=== PATIENT | female | born 1965 | race Caucasian/White ===

== ENCOUNTER 2016-10-15 19:13 | Emergency (ER) | payer OTHER ==
[~2016-10-15] VITALS: Ht 154.9 cm; Wt 86.2 kg
[~2016-10-15 19:13] MED LIST: ALBUTEROL0.09 MG/A1 INH; ASPIR 8181 MG PO; ATORVASTATIN CA10 MG PO; ATORVASTATIN CA40 MG PO; AZITHROMYCIN250 MG PO; BYSTOLIC20 M1 PO; CYMBALTA30 M1 PO; DICLOFENAC SODI50 MG PO; FLU VACCINE 0.0.5 ML IM; GABAPENTIN800 MG PO; GLIMEPIRIDE4 MG PO; GLUCOPHAGE1000 M1 PO; LANTUS SOLOS100 U/ML SC; LIPITOR40 M1 PO; LISINOPRIL30 M1 PO; MAGNESIUM OXID200 MG PO; NORCO 325 MG-7.1 TAB PO; NORVASC10 M1 PO; PANTOPRAZOLE SO40 MG PO; PNEUMOVAX 0.5M0.5 ML IM; PREDNISONE50 MG PO; TRADJENTA5 MG PO; TRAZODONE50 MG PO; VALACYCLOVIR1000 MG PO; ZOFRAN4 M1 SL; [UNRECOGNIZED DRUG - SUPPLY]
--- NOTE | 2016-10-15 20:11 | ED GENERAL ADULT ---
History of Present Illness General Chief Complaint: Lower Extremity Problems Stated Complaint: "SILVESTRE BELLE BEEN HAVING SWOLLEN FEET AND LEGS" Source: patient Exam Limitations: no limitations Vital Signs & Intake/Output Vital Signs & Intake/Output Vital Signs Date Time Temp Pulse Resp B/P Pulse O2 O2 Flow FiO2 Ox Delivery Rate 10/16 1919 97.3 58 20 131/77 97 Room Air Room Air Allergies Coded Allergies: Penicillins (GI UPSET, RASH 10/15/16) Sulfa (Sulfonamide Antibiotics) (GI UPSET 10/15/16) Reconcile Medications Amlodipine Besylate (Norvasc) 10 MG TABLET 1 TAB PO DAILY hypertension Aspirin (Ecotrin) 81 MG TABLET.DR 1 TAB PO DAILY HEART HEALTH (Reported) Atorvastatin Calcium (Lipitor) 40 MG TAB 1 TAB PO DAILY CHOLESTEROL (Reported ) [automated BP cuff] 1 Automated blood pressure cuff #1 diagnosis: Hypertension Diclofenac Sodium 50 MG ECT 1 TAB PO Q8 PRN PINCHED NERVES NECK/SHOULDER ( Reported) Duloxetine Hydrochloride (Cymbalta) 30 MG CAPSULE.DR 90 MG PO AT BEDTIME DEPRESSION/NEUROPATHY (Reported) Furosemide (Lasix) 20 MG TABLET 1 TAB PO DAILY DEPENDENT EDEMA Gabapentin 800 MG TABLET 1-3 TAB PO TID NEUROPATHY (Reported) Glimepiride 4 MG TABLET 1 TAB PO BID DIABETES Linagliptin (Tradjenta) 5 MG TABLET 1 TAB PO DAILY DIABETES Lisinopril 30 MG TAB 1 TAB PO DAILY BP (Reported) Magnesium Oxide 200 MG TAB 1 TAB PO DAILY HYPOMAGNESIA METFORMIN HCL (Metformin) 1,000 MG TAB 1 TAB PO BID DIABETES (Reported) Nebivolol Hydrochloride (Bystolic) 10 MG TAB 1 TAB PO DAILY BP (Reported) Ondansetron (Zofran Odt) 4 MG ODT 1 TAB SL TID PRN NAUSEA Valacyclovir HCl (Valacyclovir) 1,000 MG TABLET 1 TAB PO TID bells palsy Triage Note: PT TO ED WITH C/O BILATERAL LOWER LEG SWELLING X 1 WEEK "THE RIGHT SLIGHTLY BETTER NOW, I FEEL LIKE MY LEFT KNEE HAS WATER IN IT". Triage Nurses Notes Reviewed? yes Onset: Abrupt Duration: week(s): (1), constant Timing: recent history Injury Environment: home No Modifying Factors: none HPI: 51-year-old female comes into emergency room for evaluation of leg swelling bilaterally is been going on for the past week. Denies any chest pain shortness of breath. Denies any recent trauma or prior history of this. Nothing seems to make the symptoms better. Patient is been trying to elevate her legs with no relief. Denies any rashes. (JETT FINK) Past History Travel History Traveled to [place] past 21 day No Medical History Any Pertinent Medical History? see below for history Neurological: NONE EENT: allergies Cardiovascular: hypertension Respiratory: NONE Gastrointestinal: GERD Hepatic: NONE Renal: NONE Musculoskeletal: CHRONIC NECK PAIN Psychiatric: NONE Endocrine: diabetes Blood Disorders: NONE Cancer(s): NONE LEARNING AND DEVELOPMENT INTERN/Reproductive: NONE Surgical History Surgical History: non-contributory Psychosocial History What is your primary language Omani Tobacco Use: Current Daily Use Daily Tobacco Use Amount/Type: => 5 Cigarettes daily ETOH Use: occasional use Illicit Drug Use: denies illicit drug use Family History Hx Contributory? No (JETT FINK) Review of Systems Review of Systems Constitutional: Reports: no symptoms. EENTM: Reports: no symptoms. Respiratory: Reports: no symptoms. Cardiovascular: Reports: no symptoms. GI: Reports: no symptoms. Genitourinary: Reports: no symptoms. Musculoskeletal: Reports: see HPI. Skin: Reports: see HPI. Neurological/Psychological: Reports: no symptoms. Hematologic/Endocrine: Reports: no symptoms. Immunologic/Allergic: Reports: no symptoms. All Other Systems: Reviewed and Negative (JETT FINK) Physical Exam Physical Exam General Appearance: well developed/nourished, no apparent distress, alert, awake Head: atraumatic, normal appearance Eyes: Bilateral: normal appearance, EOMI. Ears, Nose, Throat: normal pharynx, hearing grossly normal Neck: normal inspection Respiratory: normal breath sounds, no respiratory distress Cardiovascular: regular rate/rhythm Back: normal inspection Extremities: normal inspection, normal range of motion Neurologic/Psych: awake, alert, oriented x 3, normal gait, normal mood/affect Skin: intact, normal color Core Measures ACS in differential dx? No CVA/TIA Diagnosis: No Severe Sepsis Present: No Septic Shock Present: No (JETT FINK) Progress Differential Diagnoses I considered the following diagnoses in my evaluation of the patient: DVT, renal failure, dependent edema, CHF, Plan of Care: Orders Procedure Date/time Status COMPREHENSIVE METABOLIC PANEL 10/15 2009 Complete CBC WITHOUT DIFFERENTIAL 10/15 2009 Complete B-TYPE NATRIURETIC PEP (BNP) 10/15 2009 Complete Laboratory Tests 10/15/162054: Anion Gap 7, Estimated GFR > 60, BUN/Creatinine Ratio 8.8, Glucose 99, Calcium 8.9, Total Bilirubin 0.4, AST 15, ALT 24, Alkaline Phosphatase 80, Pro-B- Natriuretic Pept 448 H, Total Protein 6.5, Albumin 3.6, Globulin 2.9, Albumin/ Globulin Ratio 1.2, CBC w Diff MAN DIFF ORDERED, RBC 4.19 L, MCV 88.4, MCH 29.3 , RDW 13.8, MPV 8.3, Gran % 48.7, Lymphocytes % 39.1, Monocytes % 9.5 H, Eosinophils % 2.2, Basophils % 0.5, Absolute Granulocytes 5.2, Segmented Neutrophils 43, Band Neutrophils 3, Absolute Lymphocytes 4.1 H, Lymphocytes 44, Monocytes 7, Absolute Monocytes 1.0 H, Eosinophils 2, Absolute Eosinophils 0.2, Basophils 1, Absolute Basophils 0.1, Platelet Estimate ADEQUATE, Hypochromic- Microcytic 1+, Anisocytosis 1+, PUBS MCHC 33.2 Diagnostic Imaging: Viewed by Me: Radiology Read, Ultrasound. Discussed w/RAD: Radiology Read, Ultrasound. Radiology Impression: SERVICE DATE: 10/15/16 EXAM TYPE: US - US-EXT BILAT VENOUS DOPPLER EXAMINATION: US TRIPLEX LOWER EXTREMITY, BILATERAL CLINICAL INFORMATION: Edema. Swelling. COMPARISON: None TECHNIQUE: Color-flow triplex imaging with spectral analysis and compression Doppler were performed on the bilateral lower extremities. FINDINGS: Respiratory variation, normal compression and augmented flow are noted throughout the bilateral lower extremities. The visualized common femoral vein, superficial femoral vein, profunda femoral vein, popliteal vein and midcalf peroneal and posterior tibial venous segments show no evidence of deep venous thrombosis. There is no Saenz's cyst. IMPRESSION: Normal triplex scan without evidence of deep venous thrombosis involving the bilateral lower extremities. DICTATED BY: ANIBAL VERGARA MD DATE/TIME DICTATED:10/15/162148, SERVICE DATE: 10/15/16 EXAM TYPE: RAD - XRY-CHEST XRAY, PA AND LATERAL EXAMINATION: XR CHEST CLINICAL INFORMATION: Bilateral leg swelling COMPARISON: 08/11/2014 TECHNIQUE: 2 views of the chest were obtained. FINDINGS: No focal consolidation, pulmonary edema, or pleural effusion. Stable cardiomediastinal silhouette. IMPRESSION: No acute cardiopulmonary findings. Initial ED EKG: none (JETT FINK) Departure Departure Disposition: HOME OR SELF CARE Condition: Stable Clinical Impression Primary Impression: Dependent edema Referrals: SAPNA OWENS MD (PCP/Family) Additional Instructions: Follow-up with primary care doctor. Take Lasix as prescribed. Elevate your legs. learning support services director [id number] compression stockings. Return if any other concerns worsening symptoms. Please go over all results of today's visit with your primary care doctor. Contact your primary care doctor to let them know you were here in the emergency room. There may be nonspecific findings which may not be related to your visit today here in the emergency room but may require further evaluation and chronic monitoring by your primary care doctor. If you had a laceration today the chance of foreign body always remains. You should follow-up with your primary care doctor for recheck in 3-5 days for a wound check. If you had an x-ray done there is a chance that a fracture could have been missed on initial read and you should follow-up with your primary care doctor for repeat x-rays if symptoms persist. If your blood pressure was elevated here in the emergency room please have rechecked by her primary care doctor within the next 48 hours by your primary care doctor. If you were prescribed a narcotic here in the emergency room or any type of controlled substances you're not allowed to drive while taking this medication or operate any type of heavy machinery. Narcotics can make you feel lightheaded dizziness nausea and can cause constipation. You may need to seed cone picker a stool softener. Thank you for choosing [facility] emergency room. Please return to the emergency room immediately if you have any other concerns worsening of symptoms. Departure Forms: Customer Survey General Discharge Information Prescriptions: Current Visit Scripts Furosemide (Lasix) 1 TAB PO DAILY #5 TAB Comments 10/15/2016 10:30:32 PM Patient clinically looks well. Patient is nontoxic-appearing. Patient is in no apparent distress. No evidence of renal failure. Follow-up with primary care doctor. Return if any concerns worsening symptoms. No evidence of congestive heart.. No cardiac or pulmonary symptoms. (JETT FINK) PA/MANAGER STRATEGIC PARTNERSHIPS Co-Sign Statement Statement: ED Attending supervision documentation- [] I saw and evaluated the patient. I have also reviewed all the pertinent lab results and diagnostic results. I agree with the findings and the plan of care as documented in the PA's/MANAGER STRATEGIC PARTNERSHIPS's documentation. [X] I have reviewed the ED Record and agree with the PA's/MANAGER STRATEGIC PARTNERSHIPS's documentation. [] Additions or exceptions (if any) to the PAs/MANAGER STRATEGIC PARTNERSHIPS's note and plan are summarized below: [] (JA VALVERDE,EDWIN) Critical Care Note Critical Care Note Critical Care Time: non-applicable (JETT FINK)
--- NOTE | 2016-10-15 20:46 | RADIOLOGY REPORT ---
EXAMINATION: XR CHEST CLINICAL INFORMATION: Bilateral leg swelling COMPARISON: 08/11/2014 TECHNIQUE: 2 views of the chest were obtained. FINDINGS: No focal consolidation, pulmonary edema, or pleural effusion. Stable cardiomediastinal silhouette. IMPRESSION: No acute cardiopulmonary findings.
[2016-10-15 21:09] LABS: ABSOLUTE BASOPHIL COUNT 0.1 /CUMM (0.0-0.2); ABSOLUTE EOSINOPHIL COUNT 0.2 /CUMM (0.0-0.7); ABSOLUTE GRANULOCYTE CT 5.2 /CUMM (1.4-6.5); ABSOLUTE LYMPH COUNT 4.1 /CUMM (1.2-3.4); BASOPHIL % 0.5 % (0.0-2.0); EOSINOPHIL % 2.2 % (0-5); GRANULOCYTE % 48.7 % (42.2-75.2); HEMATOCRIT 37.1 % (37-47); MEAN CORPUSCULAR HGB 29.3 PG (27.0-31.0); MEAN CORPUSCULAR HGB CONC 33.2 G/DL (33.0-37.0); MEAN CORPUSCULAR VOLUME 88.4 FL (81.0-99.0); MEAN PLATELET VOLUME 8.3 FL (7.4-10.4); PLATELET COUNT 284 /CUMM (130-400); RBC DISTRIBUTION WIDTH 13.8 % (11.5-14.5); RED BLOOD CELL CT 4.19 /CUMM (4.20-5.40); WHITE BLOOD CELL COUNT 10.6 /CUMM (4.8-10.8)
--- NOTE | 2016-10-15 21:53 | ULTRASOUND REPORT ---
EXAMINATION: US TRIPLEX LOWER EXTREMITY, BILATERAL CLINICAL INFORMATION: Edema. Swelling. COMPARISON: None TECHNIQUE: Color-flow triplex imaging with spectral analysis and compression Doppler were performed on the bilateral lower extremities. FINDINGS: Respiratory variation, normal compression and augmented flow are noted throughout the bilateral lower extremities. The visualized common femoral vein, superficial femoral vein, profunda femoral vein, popliteal vein and midcalf peroneal and posterior tibial venous segments show no evidence of deep venous thrombosis. There is no Saenz's cyst. IMPRESSION: Normal triplex scan without evidence of deep venous thrombosis involving the bilateral lower extremities.
[2016-10-15] MEDS ORDERED: LASIX20 M1 PO (22:06)
[2016-10-15 22:51] VITALS: BP 143/67
[2016-12-09] MEDS ORDERED: LANTUS SOL100 UNIT/1 SC (11:39)
[2016-12-09] MEDS ORDERED: PROAIR HFA8.5 GM INH (11:39)
[2016-12-09] MEDS ORDERED: ADVAIR 100-501 EACH INH (11:40)
[2016-12-09] MEDS ORDERED: PROTONIX40 M3 PO (11:40)
[2016-12-09] MEDS ORDERED: HYDROCODON-ACE1 EAC3 PO (11:41)
== END 2016-10-15 22:55 ==
LOC: ERH 19:13
PROVIDERS: Physician Assistant Medical
DX: R60.0 Localized edema (principal)
CPT/HCPCS: 93970

== ENCOUNTER → 2016-12-11 | Day surgery (SDC) | payer OTHER ==
[~2016-12-11] VITALS: Ht 154.9 cm; Wt 85.3 kg
[~2016-12-11] MED LIST changes: +ADVAIR 100-501 EACH INH; +ADVAIR 250-501 EACH INH; +HYDROCODON-ACE1 EAC3 PO; +LANTUS SOL100 UNIT/1 SC; +LASIX20 M1 PO; +LISINOPRIL40 M1 PO; +ONDANSETRON HCL8 MG PO; +PROAIR HFA8.5 GM INH; +PROTONIX40 M3 PO
--- NOTE | 2016-12-18 12:03 | Operative Report ---
Operative/Inv Procedure Report Surgery Date: 12/11/16 Name of Procedure: D&C hysteroscopy Pre-Operative Diagnosis: Postmenopausal bleeding Post-Operative Diagnosis: Same Estimated Blood Loss: scant Surgeon/Felt Hat Inspector And Packer: GAL STACK MD Anesthesia: moderate sedation Operative/Procedure Note Note: She was taken the operating room placed on position after adequate induction anesthesia patient placed in dorsolithotomy position the vagina was prepped draped so fashion bladder was catheterized examination under anesthesia performed a vasquez speculum was placed into the vagina CO2 tenaculum placed on the Intralipid cervix gentle downward traction cervix was dilated 29 Hegar to left insertion hysteroscope the scope was inserted and direct visualization using gas is scope was removed a sharp curettage and lining was performed cervical lining sharp curettage of the endometrial lining was performed hemostasis was apparent on since removed from the vagina 2 specimen sent to pathology patient was returned spine position on since removed from the vagina the counts correct the patient was awakened from anesthesia and transferred recovery room awake alert counts correct Findings: Slightly enlarged uterus no adnexal masses
== END ==
LOC: STS 03:49
DX: N95.0 Postmenopausal bleeding (principal); Z98.51 Tubal ligation status; E11.9 Type 2 diabetes mellitus without complications; Z79.84 Long term (current) use of oral hypoglycemic drugs; I10 Essential (primary) hypertension; K21.9 Gastro-esophageal reflux disease without esophagitis; F17.200 Nicotine dependence, unspecified, uncomplicated
CPT/HCPCS: 36415; 88305; 93005; 93010; J0131

== ENCOUNTER 2017-01-09 18:15 | Emergency (ER) | payer OTHER ==
[~2017-01-09] VITALS: Ht 154.9 cm; Wt 88.5 kg
[~2017-01-09 18:15] MED LIST changes: -ADVAIR 250-501 EACH INH; -LISINOPRIL40 M1 PO; -ONDANSETRON HCL8 MG PO
[2017-01-09 18:18] VITALS: BP 158/82
--- NOTE | 2017-01-09 19:34 | ED UPPER/LOWER EXTREMITY COMPL ---
History of Present Illness General Chief Complaint: Lower Extremity Problems Stated Complaint: PT WAS SIB DR FOR LEFT LEG SWOLLEN Source: patient, old records Exam Limitations: no limitations Vital Signs & Intake/Output Vital Signs & Intake/Output Vital Signs Date Time Temp Pulse Resp B/P B/P Pulse O2 O2 Flow FiO2 Mean Ox Delivery Rate 01/09 1818 98.8 68 18 158/82 98 Room Air ED Intake and Output 01/10 0000 01/09 1200 Intake Total Output Total Balance Patient 195 lb Weight Weight Reported by Patient Measurement Method Allergies Coded Allergies: Penicillins (GI UPSET, RASH 10/15/16) Sulfa (Sulfonamide Antibiotics) (GI UPSET 10/15/16) Reconcile Medications Albuterol Sulfate (Proair Hfa) 90 MCG HFA.AER.AD 2 PUF INH Q4-6 PRN PRN ASTHMA (Reported) Amlodipine Besylate (Norvasc) 10 MG TABLET 1 TAB PO DAILY hypertension Atorvastatin Calcium (Lipitor) 40 MG TABLET 1 TAB PO DAILY CHOLESTEROL ( Reported) Duloxetine Hydrochloride (Cymbalta) 30 MG CAPSULE.DR 90 MG PO QHS MENTAL HEALTH/NERVE PAIN (Reported) Fluticasone/Salmeterol (Advair 250-50 Diskus) 250 MCG-50 MCG/DOSE BLST.W.DEV 1 PUF INH BID PRN ASTHMA (Reported) Hydrocodone/Acetaminophen (Hydrocodon-Acetaminoph 7.5-325) 7.5 MG-325 MG TABLET 1-2 TAB PO Q4-6 PRN PRN PAIN (Reported) Insulin Glargine,Hum.rec.anlog (Lantus Solostar) 100 UNIT/ML (3 ML) INSULN.PEN 36 UNITS SC QPM DM II (Reported) Lisinopril 40 MG TABLET 1 TAB PO DAILY BP (Reported) Metformin HCl (Glucophage) 1,000 MG TABLET 1 TAB PO BID DM (Reported) Nebivolol HCl (Bystolic) 20 MG TABLET 1 TAB PO DAILY HTN (Reported) Ondansetron HCl 8 MG TABLET 1 TAB PO TID PRN N/V (Reported) Pantoprazole Sodium (Protonix) 40 MG TABLET.DR 1 TAB PO DAILY GERD (Reported) Triage Note: 51 YO FEMALE TO TRIAGE C/O BILATERAL LOWER EXTREMITY SWELLING (L>R) STATES SHE CALLED HER DR WHO TOLD HER TO COME TO ER TO GET IT CHECKED IT. DENIES CHEST PAIN, SOB. Triage Nurses Notes Reviewed? yes Onset: Gradual Duration: week(s): (1), intermittent, waxing and waning Timing: recent history Severity: mild, moderate Severity Numbers: 4 Pain/Injury Location: Bilateral: Leg. Method of Injury: unknown No Modifying Factors: none Associated Symptoms: none HPI: 51-year-old female presents to ER for evaluation with history of diabetes hypertension complaining of intermittent bilateral lower extremity swelling left greater than right for the past 1 week. She states the symptoms are resolved when she wakes up in the morning however as the day goes on the symptoms come back or she has pain no recent injury or trauma. She denies any rashes to her skin numbness or tingling no back pain. She denies any other extremity swelling chest pain shortness of breath fever chills. She is not taken anything for symptoms resolve care for them until this evening. No recent immobility or travel no hemoptysis or calf pain (BARI SAEED) Past History Travel History Traveled to [place] past 21 day No Medical History Any Pertinent Medical History? see below for history Neurological: NONE EENT: allergies Cardiovascular: hypertension Respiratory: NONE Gastrointestinal: GERD Hepatic: NONE Renal: NONE Musculoskeletal: CHRONIC NECK PAIN Psychiatric: NONE Endocrine: diabetes Blood Disorders: NONE Cancer(s): NONE CONSULTING GROUP ANALYST/Reproductive: D&C Surgical History Surgical History: non-contributory Psychosocial History What is your primary language Guinean Tobacco Use: Current Daily Use Daily Tobacco Use Amount/Type: => 5 Cigarettes daily Family History Hx Contributory? No (BARI SAEED) Review of Systems Review of Systems Constitutional: Reports: see HPI. All Other Systems: Reviewed and Negative Comments Review of systems: See HPI, All other systems negative. Constitutional, no chills no fever, no malaise HEENT: No visual changes no sore throat no congestion, no ear pain Cardiovascular: No chest pain , no palpitation , no orthopnea Skin: no rashes, no change in skin Respiratory: No dyspnea no cough no sputum no hemoptysis GI: No nausea no vomiting, no diarrhea, no bloating/constipation Muscle skeletal: No joint pain, no joint swelling, no back pain, no neck pain, Neurologic: No numbness no headache Psych: No stress Heme/endocrine: No bruising Immunology: No lymphadenopathy (BARI SAEED) Physical Exam Physical Exam General Appearance: well developed/nourished, no apparent distress, alert, awake , comfortable Comments: Well-developed well-nourished patient in no apparent distress. HEENT: Atraumatic, extraocular motion intact Neck: Supple, FROM Back: FROM Cardiovascular: Regular rate and rhythms no murmurs rubs or gallops, Respiratory: Chest nontender.There were no bony deformities, no asymmetry. No respiratory distress. Patient speaking in full complete sentences. Breath sounds clear to auscultation bilaterally: NO W/R/R Upper Extremities: full range of motion Hip/Pelvis: Atraumatic/Stable. FROM. No pain with pelvic compression Knee: Atraumatic/stable. FROM. No joint swelling, no effusion. No laxity. Negative be/anterior drawer test. No pain with ROM Leg: Atraumatic. Nontender. 1+ B/L edema, 5 out of 5 strength in the lower extremity, normal dorsiflexion of great toe bilaterally, gross sensation is intact, patellar tendon reflex 2+ bilaterally. Ankle/Foot: Atraumatic/stable. Skin intact. FROM. No swelling, no effusion. No laxity on exam Pulses: Normal/equal DP/PT pulses bilaterally. Brisk cap refill Neuro: awake, alert, and oriented to person, place and time. There were no obvious focal neurologic abnormalities. Skin: Warm & dry;No appreciable rash on exposed skin Psych: Mood affect normal, normal memory normal judgment. (LIZ RODARTE,BARI) Progress Differential Diagnosis: arterial insufficiency, cellulitis, CHF, contusion, DVT, fracture, gout, sprain, tendon injury Plan of Care: Orders Procedure Date/time Status US-EXT BILAT VENOUS DOPPLER 01/09 1943 Active Ultrasound ordered patient denies any pain I discussed with the patient at length all of their results. I had an extensive conversation regarding need for close follow up with their primary care physician this week as well as return precautions. I answered all of their questions, they feel comfortable with the plan and follow-up care. (LIZ RODARTE,BARI) Diagnostic Imaging: Viewed by Me: Ultrasound. Discussed w/RAD: Ultrasound. Radiology Impression: PATIENT: MARISSA SYLVESTER PRESENT AGE: 51 PATIENT ACCOUNT NO: [id number] : 64 LOCATION: [facility] ORDERING PHYSICIAN: BARI RODARTE SERVICE DATE: 01/09/17 EXAM TYPE: US - US-EXT BILAT VENOUS DOPPLER EXAMINATION: US TRIPLEX OF LOWER EXTREMITIES, BILATERAL CLINICAL INFORMATION: Bilateral lower extremity swelling, left greater than right. COMPARISON: Ultrasound of the bilateral lower extremity veins 10/15/2016. TECHNIQUE: Color-flow triplex imaging with spectral analysis and compression Doppler were performed on the lower extremities. FINDINGS: Respiratory variation , normal compression and augmented flow are noted throughout the bilateral lower extremities. The visualized common femoral, femoral, profunda femoral, popliteal and midcalf peroneal and posterior tibial venous segments show no evidence of deep venous thrombosis. There are no Saenz's cysts. IMPRESSION: Normal triplex scan without evidence of deep venous thrombosis involving the bilateral lower extremities. DICTATED BY: ELDA PAIGE MD DATE/TIME DICTATED:01/09/172018 SALES SPECIAL AGENT:ARNALDO DATE/TIME TRANSCRIBED:01/09/172018 CONFIDENTIAL, DO NOT COPY WITHOUT APPROPRIATE AUTHORIZATION. <Electronically signed in Other Vendor System> SIGNED BY: ELDA PAIGE MD 01/09/172023 (BARI SAEED) Departure Departure Disposition: HOME OR SELF CARE Condition: Stable Clinical Impression Primary Impression: Leg edema Referrals: IRVING RÍOS MD (PCP/Family) Additional Instructions: Purchase leg compression stockings as discussed. Keep legs elevated when at home follow-up with her primary care physician return to ER with any concerns Departure Forms: Customer Survey General Discharge Information (BARI SAEED) PA/ASBESTOS BRAKE LINING FINISHER HELPER Co-Sign Statement Statement: ED Attending supervision documentation- [] I saw and evaluated the patient. I have also reviewed all the pertinent lab results and diagnostic results. I agree with the findings and the plan of care as documented in the PA's/ASBESTOS BRAKE LINING FINISHER HELPER's documentation. [X] I have reviewed the ED Record and agree with the PA's/ASBESTOS BRAKE LINING FINISHER HELPER's documentation. [] Additions or exceptions (if any) to the PAs/ASBESTOS BRAKE LINING FINISHER HELPER's note and plan are summarized below: [] (LALA VALVERDE,PHILIP Munoz)
[2017-01-09] MEDS ORDERED: ADVAIR 250-501 EACH INH (20:22)
[2017-01-09] MEDS ORDERED: LISINOPRIL40 M1 PO (20:22)
[2017-01-09] MEDS ORDERED: ONDANSETRON HCL8 MG PO (20:23)
--- NOTE | 2017-01-09 20:24 | ULTRASOUND REPORT ---
EXAMINATION: US TRIPLEX OF LOWER EXTREMITIES, BILATERAL CLINICAL INFORMATION: Bilateral lower extremity swelling, left greater than right. COMPARISON: Ultrasound of the bilateral lower extremity veins 10/15/2016. TECHNIQUE: Color-flow triplex imaging with spectral analysis and compression Doppler were performed on the lower extremities. FINDINGS: Respiratory variation, normal compression and augmented flow are noted throughout the bilateral lower extremities. The visualized common femoral, femoral, profunda femoral, popliteal and midcalf peroneal and posterior tibial venous segments show no evidence of deep venous thrombosis. There are no Saenz's cysts. IMPRESSION: Normal triplex scan without evidence of deep venous thrombosis involving the bilateral lower extremities.
== END 2017-01-09 20:50 ==
LOC: ERH 18:15
DX: R60.9 Edema, unspecified (principal)
CPT/HCPCS: 93970

== ENCOUNTER 2017-10-04 21:10 | Emergency (ER) | payer OTHER ==
[~2017-10-04] VITALS: Ht 154.9 cm; Wt 81.6 kg
[~2017-10-04 21:10] MED LIST changes: +ADVAIR 250-501 EACH INH; +LISINOPRIL40 M1 PO; +LOMOTIL 2.5-0.1 EACH PO; +ONDANSETRON HCL8 MG PO
--- NOTE | 2017-10-04 22:44 | ED INFLUENZA/URI COMPLAINT ---
History of Present Illness General Chief Complaint: General Adult Stated Complaint: GENERAL MALAISE Source: patient, family, old records Exam Limitations: no limitations Vital Signs & Intake/Output Vital Signs & Intake/Output Vital Signs Date Time Temp Pulse Resp B/P B/P Pulse O2 O2 Flow FiO2 Mean Ox Delivery Rate 10/045 98.5 70 20 127/78 98 Room Air 10/04 2235 97 Room Air 10/04 2117 100.9 10/04 2116 100.9 83 18 122/68 96 Room Air Allergies Coded Allergies: Penicillins (GI UPSET, RASH 10/15/16) Sulfa (Sulfonamide Antibiotics) (GI UPSET 10/15/16) Reconcile Medications Albuterol Sulfate (Proair Hfa) 90 MCG HFA.AER.AD 2 PUF INH Q4-6 PRN PRN ASTHMA (Reported) Amlodipine Besylate (Norvasc) 10 MG TABLET 1 TAB PO DAILY hypertension Atorvastatin Calcium (Lipitor) 40 MG TABLET 1 TAB PO DAILY CHOLESTEROL ( Reported) Diphenoxylate HCl/Atropine (Lomotil 2.5-0.025 MG Tablet) 2.5 MG-0.025 MG TABLET 2 TAB PO 4 TIMES/DAY DIARRHEA (Reported) Duloxetine Hydrochloride (Cymbalta) 30 MG CAPSULE.DR 90 MG PO QHS MENTAL HEALTH/NERVE PAIN (Reported) Fluticasone/Salmeterol (Advair 250-50 Diskus) 250 MCG-50 MCG/DOSE BLST.W.DEV 1 PUF INH BID PRN ASTHMA (Reported) Furosemide (Lasix) 20 MG TABLET 1 TAB PO DAILY EDEMA (Reported) Hydrocodone/Acetaminophen (Hydrocodon-Acetaminoph 7.5-325) 7.5 MG-325 MG TABLET 1-2 TAB PO Q4-6 PRN PRN PAIN (Reported) Insulin Glargine,Hum.rec.anlog (Lantus Solostar) 100 UNIT/ML (3 ML) INSULN.PEN 36 UNITS SC QPM DM II (Reported) Lisinopril 40 MG TABLET 1 TAB PO DAILY BP (Reported) Metformin HCl (Glucophage) 1,000 MG TABLET 1 TAB PO BID DM (Reported) Nebivolol HCl (Bystolic) 20 MG TABLET 1 TAB PO DAILY HTN (Reported) Oseltamivir Phosphate (Tamiflu) 75 MG CAPSULE 1 CAP PO BID INFLUENZA Pantoprazole Sodium (Protonix) 40 MG TABLET. 1 TAB PO DAILY GERD (Reported) Triage Note: PT TO ER C/C GENERAL MALAISE AND CHILLS X 1 DAY. TEMP IN TRIAGE 100.9, MED WITH 975 MG TYLENOL. +COUGH - SORE THROAT. +HEADACHE/BODY ACHES Triage Nurses Notes Reviewed? yes HPI: Patient presents with fevers, chills, myalgias and a nonproductive cough that started earlier this afternoon. Fever went as high as 103 at home. No nausea or vomiting. No dysuria. No neck pain or neck stiffness. No headache or blurry vision. Past History Travel History Traveled to [place] past 21 day No Medical History Any Pertinent Medical History? see below for history Neurological: NONE EENT: allergies Cardiovascular: hypertension Respiratory: NONE Gastrointestinal: GERD Hepatic: NONE Renal: NONE Musculoskeletal: CHRONIC NECK PAIN Psychiatric: NONE Endocrine: diabetes Blood Disorders: NONE Cancer(s): NONE BIOMEDICAL EQUIPMENT TECHNICIAN/Reproductive: D&C Surgical History Surgical History: non-contributory Psychosocial History What is your primary language [place] Tobacco Use: Current Daily Use Daily Tobacco Use Amount/Type: => 5 Cigarettes daily ETOH Use: occasional use Illicit Drug Use: denies illicit drug use Family History Hx Contributory? No Review of Systems Review of Systems Constitutional: Reports: see HPI, chills, fever, malaise. EENTM: Reports: no symptoms. Respiratory: Reports: see HPI, cough. Cardiovascular: Reports: no symptoms. GI: Reports: no symptoms. Genitourinary: Reports: no symptoms. Musculoskeletal: Reports: see HPI, muscle pain. Skin: Reports: no symptoms. Neurological/Psychological: Reports: no symptoms. Hematologic/Endocrine: Reports: no symptoms. Immunologic/Allergic: Reports: no symptoms. All Other Systems: Reviewed and Negative Physical Exam Physical Exam General Appearance: well developed/nourished, alert, awake, moderate distress Head: atraumatic, normal appearance Eyes: Bilateral: PERRL, EOMI. Ears, Nose, Throat: normal ENT inspection, moist mucous membrane, hearing grossly normal Neck: normal inspection, supple, full range of motion Respiratory: normal breath sounds, chest non-tender, no respiratory distress, lungs clear Cardiovascular: regular rate/rhythm, normal peripheral pulses Gastrointestinal: normal bowel sounds, soft, non-tender, no organomegaly Back: normal inspection, normal range of motion, NO CVA TENDERNESS Extremities: normal inspection, normal capillary refill, normal range of motion, no edema Neurologic/Psych: no motor/sensory deficits, awake, alert, oriented x 3, normal gait, normal mood/affect Skin: intact, normal color, warm/dry Lymphatic: no anterior cervical margo Core Measures Sepsis Present: No Sepsis Focused Exam Completed? No Progress Differential Diagnosis: influenza, pneumonia, pharyngitis, sinusitis Plan of Care: Orders Procedure Date/time Status RAPID VIRAL INFLUENZA A 10/04 2117 Complete Microbiology 10/04 2119 NASOPHARYN: Influenza Virus A & B Rapid Smear - COMP Initial ED EKG: none Departure Departure Disposition: HOME OR SELF CARE Condition: Stable Clinical Impression Primary Impression: Influenza Referrals: Jose Harris MD (PCP/Family) Additional Instructions: DRINK PLENTY OF FLUIDS TAKE MOTRIN NEEDED FOR MUSCLE ACHES AND FEVERS TAKE TAMIFLU DIRECTED RETURN IF SYMPTOMS WORSEN OR FOR ANY CONCERNS Departure Forms: Customer Survey General Discharge Information Prescriptions: Current Visit Scripts Oseltamivir Phosphate (Tamiflu) 1 CAP PO BID #10 CAP
[2017-10-04] MEDS ORDERED: TAMIFLU75 M1 PO (22:49)
[2017-10-04 22:55] VITALS: BP 127/78
== END 2017-10-04 22:57 ==
LOC: ERH 21:10
DX: J11.1 Influenza due to unidentified influenza virus with other respiratory manifestations (principal); F17.210 Nicotine dependence, cigarettes, uncomplicated
CPT/HCPCS: 87804; 87804-59